=== PATIENT | female | born 1960 | race Caucasian/White ===

== ENCOUNTER 2025-04-30 11:48 | Emergency (ER) | payer MEDICARE ==
[~2025-04-30] VITALS: Ht 157.5 cm; Wt 102.1 kg
[2025-04-30 11:51] VITALS: BP 161/82; PULSE 81; RESP 18; TEMP 98.2
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
--- NOTE | 2025-04-30 14:05 | HMCIMG ---
EXAM: US Duplex Right Lower Extremity Veins. CLINICAL HISTORY: right lower extremity edema/tightness. TECHNIQUE: Real-time ultrasound scan of the veins of the right lower extremity with color Doppler flow, spectral waveform analysis and compression. COMPARISON: None provided. FINDINGS: DEEP VEINS: The common femoral, femoral, and popliteal veins are echolucent and compressible. These vessels demonstrate respiratory variation and augmentation. There is normal color Doppler flow throughout. The visualized calf veins are also patent. SUPERFICIAL VEINS: The visualized greater saphenous vein is patent. SOFT TISSUES: Anterior pre patellar bursa seen at right knee measures about 3.2 x 0.7 x 1.9 cm. IMPRESSION: 1. No deep venous thrombosis in the right lower extremity. 2. Anterior pre patellar bursa at the right knee measuring approximately 3.2 x 0.7 x 1.9 cm. /[place]
--- NOTE | 2025-04-30 14:23 | NUR ---
APPLIED ICE WRAP
== END 2025-04-30 14:24 | disposition home or self-care (01) ==
LOC: EDH 11:48
DX: S50.311A Abrasion of right elbow, initial encounter (principal); S80.211A Abrasion, right knee, initial encounter; R22.41 Localized swelling, mass and lump, right lower limb; E03.9 Hypothyroidism, unspecified; E78.00 Pure hypercholesterolemia, unspecified; V87.8XXA Person injured in other specified noncollision transport accidents involving motor vehicle (traffic), initial encounter; Y93.55 Activity, bike riding; Y92.89 Other specified places as the place of occurrence of the external cause; Y99.8 Other external cause status
CPT/HCPCS: 93971; 99284